=== PATIENT | male | born 1970 | race Caucasian/White ===

== ENCOUNTER 2016-08-07 18:58 | Emergency (ER) | payer OTHER ==
--- NOTE | 2016-08-07 23:05 | DIAGNOSTIC IMAGING REPORT ---
PROCEDURE: XR CHEST 1 VIEW INDICATION: CHEST PAIN TECHNIQUE: Single view chest. 1919 hours COMPARISON: None FINDINGS: Heart size at the upper limits of normal. No central venous congestion. Clear lungs. No effusions or pneumothorax. Intact osseous structures. IMPRESSION: 1. Normal chest.
--- NOTE | 2016-08-07 23:11 | ED CLINICAL REPORT ---
Clinical Report - Physicians/Mid Levels Located Within [facility] [address] [place] [address] 08/07/2016 19:00 Patient: GARY DURAN Time Seen: 19:01. Arrived- By private vehicle. Historian- patient. CPT: ER phys charges level 5 plus (#[id number]). EKG interpretation (#[id number]). HISTORY OF PRESENT ILLNESS Chief Complaint: CHEST PAIN. At its maximum, severity described as mild. When seen in the E.D., severity described as 3 / 10. Modifying factors. Not worsened by anything. This started today at about 4:30 and is still present. It was abrupt in onset. Onset during driving. It is described as pressure and it is described as located in the central chest area. No radiation. No difficulty breathing. Similar symptoms previously: Several times. ( he has had similar episodes several times over the past few weeks). Recent medical care: Not recently seen/assessed. REVIEW OF SYSTEMS No fever, chills, cough, pedal edema or calf pain. No fainting episodes, sore throat, abdominal pain, black stools or difficulty with urination. No skin rash, enlarged lymph nodes, joint pain or bloody stools. All systems otherwise negative, except as recorded above. PAST HISTORY Gout. Nephrolithiasis. Problems: Gout. Nephrolithiasis. Additional Surgeries: no known surgeries. Medications: Aleve Oral (Capsule 220 mg) 1 capsule, 3x a day. Allopurinol Oral (Tablet 300 mg) 1 tablet, daily. Allergies: Keflex. SOCIAL HISTORY Never smoker. No alcohol use or drug use. FAMILY HISTORY Hypertension in first-degree relative (father). many family members have anxiety issues. ADDITIONAL NOTES The nursing notes have been reviewed. PHYSICAL EXAM Vital Signs: 08/07/2016 19:03 BP: 157/98. HR: 66. RR: 18. O2 saturation: 100%. Temp: 97.7 F. Pain level now: 2/10. Have been reviewed. Appearance: Alert. Patient in mild distress. Eyes: Pupils equal, round and reactive to light. ENT: Pharynx normal. Neck: Normal inspection. Neck supple. CVS: Normal heart rate and rhythm. Heart sounds normal. Respiratory: No respiratory distress. Chest pain reproducible with palpation of the costal cartilage and anterior and lateral chest wall, with movement of the trunk and left arm and with deep breathing. Breath sounds normal. Abdomen: Soft and nontender. Bowel sounds normal. No organomegaly. No mass. Back: Normal external inspection. Skin: Skin warm. Normal skin color. No rash. Extremities: Extremities exhibit normal ROM. No calf tenderness. No lower extremity edema. Neuro: Oriented X 3. No motor deficit. No sensory deficit. LABS, X-RAYS, AND EKG EKG: Normal EKG. Rate: 63. Prior EKG unavailable. The study has been independently viewed by me. Chest X-ray: No acute disease. The X-rays were independently viewed by me. Laboratory Tests: CBC w Diff: (FERNIE: 08/07/2016 19:06) ( [facility] [place] 08/07/2016 19:23) Final results Test Result Flag Units (Reference) WHITE BLOOD COUNT 7.7 K/uL (4.5-11.5) RED BLOOD COUNT 4.33 L M/uL (4.50-5.90) HEMOGLOBIN 14.1 gm/dL (13.5-17.5) HEMATOCRIT 41.2 % (41.0-53.0) MEAN CELL VOLUME 95 fL (80-100) MEAN CORPUSCULAR HGB 32 pg (26-34) MEAN CORPUSCULAR HGB CONC 34 g/dL (31-37) RED CELL DISTRIBUTION WIDTH 13.4 % (11.6-14.8) PLATELET COUNT 231 K/uL (150-400) NEUTROPHIL % 61.3 % (50-75) LYMPH % 29.1 % (25-40) MONO % 5.5 % (3-14) EOSINOPHIL % 3.6 % (0-4) BASOPHIL % 0.5 % (0-2) PT with INR: (FERNIE: 08/07/2016 19:06) ( [facility] 08/07/2016 19:30) Final results Test Result Flag Units (Reference) INR 1.0 (0.8-1.2) Low Intensity Therapy: INR 1.5-2.0 PT range 18.5-23.1Mod.Intensity Therapy: INR 2.0-3.0 PT range 23.1-31.5High Intensity Therapy: INR 2.5-3.5 PT range 27.4-35.5High Intensity Therapy 2: INR 3.0-4.0 PT range 31.5-39.3 APTT 34 SECONDS (24-34) D-DIMER QUANTITATIVE < 0.27 L ug/mLFEU (0.27-0.52) The primary value of this quantitative assay relates toits negative predictive value (i.e. exclusion) of pulmonaryembolism/deep vein thrombosis/DIC.Elevated levels of d-dimer may also occur with:, age, cancer, inflammation, liver disease,post-op, infection, hematoma, coronary disease, peripheralarteriopathy, bleeding disorders and thrombolytic treatment.Results should be correlated with other clinical andradiological data.Testing Methodology: Latex Immunoassay BNP: (FERNIE: 08/07/2016 19:06) ( OkgRcvd 08/07/2016 19:44) Final results Test Result Flag Units (Reference) B-TYPE NATRIURETIC PEPTIDE < 5.0 L pg/ml (5-100) CMP: (FERNIE: 08/07/2016 19:06) ( MsgRcvd 08/07/2016 19:43) Final results Test Result Flag Units (Reference) GLUCOSE 93 mg/dL (70-110) BUN 15 mg/dL (7-18) CREATININE 1.1 mg/dL (0.6-1.3) Estimated GFR >60 mL/min Estimated GFR- >60 mL/min Note: Persistent reduction over 3 months in eGFR<60 mL/min/1.73 m2 defines CKD. Patients with eGFR values>=60 mL/min/1.73 m2 may also have CKD if evidence ofpersistent proteinuria. Additional information may be foundat [email or web address].org. SODIUM 140 mmol/L (136-145) POTASSIUM 3.7 mmol/L (3.5-5.1) CHLORIDE 102 mmol/L (98-107) CARBON DIOXIDE 29 mmol/L (21-32) CALCIUM 8.7 mg/dL (8.5-10.1) TOTAL PROTEIN 7.5 g/dL (6.4-8.2) ALBUMIN 4.3 g/dL (3.3-5.0) BILIRUBIN, TOTAL 0.6 mg/dL (0.0-1.0) ALKALINE PHOSPHATASE 106 U/L (46-116) AST (SGOT) 29 U/L (15-37) ALT (SGPT) 46 U/L (12-78) LIPASE 153 U/L (73-393) AMYLASE 46 U/L (25-115) CPK 84 U/L (24-260) TROPONIN I <0.05 ng/mL (0.00-1.5) TROPONIN REFERENCE RANGE:<0.1 NEGATIVE0.1-1.5 INDETERMINANT>1.5 POSITIVE . PROGRESS AND PROCEDURES Course of Care: 21:22 08/07/16. Case was discussed with Dr. Slick tyler. We reviewed the patient's history and examination findings as well as the results of his initial studies. Dr. Kruger will follow up on the results of his second set of cardiac enzymes and will arrange an appropriate disposition for the patient. - MW Pt troponin negative times 2. Has chest wall tenderness that has been on and off for a week. Has had a lot of stressors at work over the past few weeks as well. Patient/family counseled. Disposition: Discharged. Condition: stable. CLINICAL IMPRESSION Chest wall pain .12 lead EKG performed. Multiple stressors. INSTRUCTIONS Apply moist heat for 15-20 minutes two times a day for one weeks until better. Avoid stimulants (such as cigarettes, coffee, cold medicines, sinus medicines, street drugs). Warnings: Further evaluation is necessary. GENERAL WARNINGS: Return or contact your physician immediately if your condition worsens or changes unexpectedly, if not improving as expected, or if other problems arise. Your Current Medications: CONTINUE TAKING THE FOLLOWING MEDICATIONS: Aleve Oral : Capsule 220 mg, 1 capsule 3x a day. Allopurinol Oral : Tablet 300 mg, 1 tablet daily. Prescription Medications: Alprazolam 0.25 mg: take 1-2 orally every 6 hours as needed for anxiety. Dispense fifteen (15). No refill. Follow-up: Return to the emergency department if worse. Follow up with your doctor in one week. Call for an appointment. Understanding of the discharge instructions verbalized by patient and family. Discharge instructions reviewed with and understanding was verbalized by spouse. (Electronically signed by Geoffrey Kruger MD 08/08/2016 15:19)
--- NOTE | 2016-08-07 23:11 | ED NURSING NOTES ---
Clinical Report - Nurses [facility] [address] [place] [address] 08/07/2016 19:00 Patient: GARY DURAN TRIAGE Triage time 19:Aug 07 2016. Acuity: LEVEL 3. Chief Complaint: CHEST DISCOMFORT and (Patient started having chest pressure around 4PM today and has gradually gotten worse as the day has gone on.). 19:08 08/07/16. SEPSIS SCREEN: Sepsis Screen. Negative (no infection suspected/documented). GABRIELLA COMA SCORE: Ronan Coma Scale: 15- eyes open spontaneously (4); best verbal response- oriented x 4 (5); best motor response- obeys commands (6). --19:08 Lisa Sanchez R.N. 19:03 08/07/16. BP: 157/98 (regular adult cuff) taken on the left arm, while sitting. HR: 66. RR: 18. O2 saturation: 100% on room air. Temp: 97.7 F (oral). Pain level now: 05/19. --19:08 Lisa Sanchez R.N. Weight: 113.3 kg stated. Height/Length: 73 inches Per Patient. BMI: 33. --19:05 Lisa Sanchez R.N. Medications Allopurinol Oral (Tablet 300 mg) 1 tablet, daily. --19:05 Lisa Sanchez R.N. Aleve Oral (Capsule 220 mg) 1 capsule, 3x a day. --19:05 Lisa Sanchez R.N. Allergies Keflex. --19:05 Lias Sanchez R.N. History Arrived by private vehicle. Historian: patient. Accompanied by family. Primary physician ([facility]). This started today. ( lightheaded). Treatment PROBATE PARALEGAL: None. SOCIAL HX: Never smoker. No alcohol use or drug use. No infectious disease exposure. ABUSE ASSESSMENT: No report of abuse. --19:08 Lisa Sanchez R.N. PROBLEMS: Gout. Nephrolithiasis. --19:06 Lisa Sanchez R.N. ADDITIONAL SURGERIES: no known surgeries. Interventions ID band on patient. To treatment room. --19:08 Lisa Sanchez R.N. PHYSICAL ASSESSMENT 19:10 08/07/16. Ambulatory to room. Patient gowned. GENERAL / NEURO / PSYCH: Alert. Oriented X 4. Appears anxious. HEENT: Mucous membranes are pink. RESPIRATORY: Respirations not labored. Chest nontender. Breath sounds within normal limits. CVS: Heart sounds within normal limits. Pulses within normal limits. Capillary refill less than 2 seconds. GI / : Abdomen soft and nontender. EXTREMITIES: No lower extremity edema. SKIN: Skin is warm. Normal skin turgor. Skin is non-tender. --19:10 iLsa Sanchez R.N. NURSING PROGRESS NOTES 19:08/07/16. The plan of care for this patient has been created. Monitoring of patient in place. Patient gowned. Head of bed elevated. Reassurance given. Two patient identifiers checked. Call light placed in reach. Side rails up x 1. Bed placed in lowest position. Brakes of bed on. Patient ready for evaluation- chart flagged and ED physician notified. --19:10 Lisa Sanchez R.N. ( Xray in with patient). --19:13 Lisa Sanchez R.N. 19:12 08/07/2016 Site #1 started via IV in the right antecubital space with an 20g angiocath, with aseptic technique and good blood return; one attempt. Blood drawn: rainbow set. Labeled in the presence of the patient and sent to the lab. Saline lock flushed with 10 mL saline. --19:17 Lisa Sanchez R.N. 19:13 08/07/2016 Aspirin PO Tablets 325 mg given. Allergies verified and confirmed 5 rights. --19:18 Lisa Sanchez R.N. 19:17 08/07/16. ( Xray done with patient). --19:17 Lisa Sanchez R.N. 19:42 08/07/16. ( Tightness has subsided some per patient). --19:42 Lisa Sanchez R.N. 19:41 08/07/16. BP: 143/88 (regular adult cuff) taken on the left arm. HR: 55. RR: 18. O2 saturation: 100% on nasal cannula at 2 liters/minute. Pain level now: 05/19. --19:42 Lisa Sanchez R.N. 20:02 08/07/16. --20:02 Lisa Sanchez R.N. 20:08/07/16. BP: 151/91 (regular adult cuff) taken on the left arm. HR: 56. RR: 18. O2 saturation: 100% on nasal cannula at 2 liters/minute. Pain level now: 05/19. --20:02 Lisa Sanchez R.N. EKG time: (19:11). EKG was performed by a tech and shown to the ED physician. --20:16 Juliane Du 20:34 08/07/16. ( Patient offered blanket, he declined). --20:34 Lisa Sanchez R.N. 20:33 08/07/16. BP: 142/91 (regular adult cuff) taken on the left arm. HR: 62. RR: 16. O2 saturation: 99% on nasal cannula at 2 liters/minute. Pain level now: 05/19. --20:34 Lisa Sanchez R.N. 20:34 08/07/16. ( Patient informed more labs at 2200). --20:34 Lisa Sanchez R.N. 21:08/07/16. ( Patients at bedside). --21:10 Lisa Sanchez R.N. 21:08/07/16. BP: 150/81 (regular adult cuff) taken on the left arm. HR: 56. RR: 18. O2 saturation: 95% on nasal cannula at 2 liters/minute. Pain level now: 04/18. --21:10 Lisa Sanchez R.N. 21:37 08/07/16. --21:37 Lisa Sanchez R.NAna Rosa 21:36 08/07/16. BP: 151/93 (regular adult cuff) taken on the left arm. HR: 60. RR: 18. O2 saturation: 98% on nasal cannula at 2 liters/minute. Pain level now: 04/18. --21:37 Lisa Sanchez R.N. ( 8325- nps at bedside for 2nd blood draw.). --22:00 Sury Galicia R.N. 22:03 08/07/16. --22:03 Lisa Sanchez R.N. 22:02 08/07/16. BP: 138/76 (regular adult cuff) taken on the left arm. HR: 63. RR: 18. O2 saturation: 99% on nasal cannula at 2 liters/minute. Pain level now: 04/18. --22:03 Lisa Sanchez R.N. 22:44 08/07/16. BP: 134/87 (regular adult cuff) taken on the left arm. --23:24 Lisa Sanchez R.N. DISPOSITION / DISCHARGE 23:08/07/2016 Site #1 removed upon discharge. Bandaid applied. --23:21 Lisa Sanchez R.N. 23:21 08/07/16. Condition at departure: improved. No learning barriers present. Discharge instructions provided and reviewed with the patient. Reviewed medication(s) side effects, precautions and dosing information. Prescription(s) given to the patient. Patient verbalized understanding. Written instructions provided in Kazakh. The patient was discharged by the physician. He was discharged home and accompanied by spouse. He left the Emergency Department ambulatory and via private vehicle. Patient driving. --23:21 Lisa Sanchez R.N. 23:16 08/07/16. BP: 158/96 (regular adult cuff) taken on the left arm. HR: 57. RR: 18. O2 saturation: 96% on room air. Temp: 98.6 F (oral). Pain level now: 0/10. Additional comments: This is normal for this patient, doctor aware. --23:21 Lisa Sanchez R.N. Departure time: 23:Aug 07 2016. --23:23 Lisa Sanchez R.N. Locked/Released at 08/07/2016 23:26 by Lisa Sanchez R.N.
--- NOTE | 2016-08-07 23:11 | ED ORDER SUMMARY ---
..... Patient: GARY DURAN OrderSheet [facility] VisitID: [id number] [address] [place] [address] 45y, M Registration Date/Time: 08/07/2016 ORDER SHEET Weight: 113.3 kg (stated) Allergies: Keflex GENERAL ORDERS: Chest 1V Urgent (19:08/07/2016 Adalgisa CARBAJAL) (Ack 19:13 KARTIKanders R.N.) (19:17 KARTIKanders R.N.) [employer] Blasting (Continuous) (19:08/07/2016 Adalgisa CARBAJAL) (19:10 Isac R.N.) CBC w Diff Urgent (19:08/07/2016 Adalgisa CARBAJAL) (19:11 Isac R.N.) CMP Urgent (19:08/07/2016 Adalgisa CARBAJAL) (19:11 Isac R.N.) PT with INR Urgent (19:08/07/2016 Adalgisa CARBAJAL) (19:11 Isac R.N.) PTT Urgent (19:08/07/2016 Adalgisa CARBAJAL) (19:11 Isac R.N.) Lipase Urgent (19:08/07/2016 Adalgisa CARBAJAL) (19:11 Isac R.N.) D-Dimer Urgent (19:08/07/2016 Adalgisa CARBAJAL) (19:11 Isac R.N.) Amylase Urgent (19:08/07/2016 Adalgisa CARBAJAL) (19:11 Helens R.N.) CPK Urgent (19:08/07/2016 Adalgisa CARBAJAL) (19:12 Isac R.N.) Troponin-I Urgent (19:08/07/2016 Adalgisa CARBAJAL) (19:12 Isac R.N.) BNP Urgent (19:08/07/2016 Adalgisa CARBAJAL) (19:12 Isac R.N.) Oxygen (2 L/min) (NC) (19:08/07/2016 Adalgisa CARBAJAL) (19:11 Isac R.N.) Pulse oximeter (19:08/07/2016 Adalgisa CARBAJAL) (19:11 Isac R.N.) EKG - ER Stat (19:09 08/07/2016 Adalgisa CARBAJAL) (19:11 Isac R.N.) CPK (second setdraw at 22:06) Urgent (20:22 08/07/2016 Adalgisa CARBAJAL) (Ack 20:33 Kelsyegekimana) (22:11 JSanders R.N.) Troponin-I (second setdraw at 22:06) Urgent (20:23 08/07/2016 Adalgisa CARBAJAL) (Ack 20:33 Taraekimana) (22:11 KARTIKanders R.N.) MEDICATION ORDERS: Aspirin PO 325 mg (NOW) (19:08/07/2016 Adalgisa CARBAJAL) (Ack 19:13 JSanders R.N.) (19:18 JSanders R.N.) IV FLUIDS: IV Saline Lock (19:08/07/2016 Adalgisa CARBAJAL) (Ack 19:13 KARTIKanders R.N.) (19:17 JSanders R.N.) ORDER SHEET NOTES: [Electronically signed by Lisa Sanchez R.N. (23:26 08/07/2016)] [Electronically signed by Geoffrey Kruger MD (15:19 08/08/2016)] [Electronically locked/signed by Lisa Sanchez R.N. (23:26 08/07/2016)]
--- NOTE | 2016-08-07 23:11 | ED NURSING NOTES ---
Clinical Report - Nurses [facility] [address] [place] [address] 08/07/2016 19:00 Patient: GARY DURAN TRIAGE Triage time 19:Aug 07 2016. Acuity: LEVEL 3. Chief Complaint: CHEST DISCOMFORT and (Patient started having chest pressure around 4PM today and has gradually gotten worse as the day has gone on.). 19:08 08/07/16. SEPSIS SCREEN: Sepsis Screen. Negative (no infection suspected/documented). GABRIELLA COMA SCORE: Paden Coma Scale: 15- eyes open spontaneously (4); best verbal response- oriented x 4 (5); best motor response- obeys commands (6). --19:08 Lisa Sanchez R.N. 19:03 08/07/16. BP: 157/98 (regular adult cuff) taken on the left arm, while sitting. HR: 66. RR: 18. O2 saturation: 100% on room air. Temp: 97.7 F (oral). Pain level now: 05/19. --19:08 Lisa Sanchez R.N. Weight: 113.3 kg stated. Height/Length: 73 inches Per Patient. BMI: 33. --19:05 Lisa Sanchez R.N. Medications Allopurinol Oral (Tablet 300 mg) 1 tablet, daily. --19:05 Lisa Sanchez R.N. Aleve Oral (Capsule 220 mg) 1 capsule, 3x a day. --19:05 Lisa Sanchez R.N. Allergies Keflex. --19:05 Lisa Sanchez R.N. History Arrived by private vehicle. Historian: patient. Accompanied by family. Primary physician ([facility]). This started today. ( lightheaded). Treatment ADVANCED DEVELOPER: None. SOCIAL HX: Never smoker. No alcohol use or drug use. No infectious disease exposure. ABUSE ASSESSMENT: No report of abuse. --19:08 Lisa Sanchez R.N. PROBLEMS: Gout. Nephrolithiasis. --19:06 Lisa Sanchez R.N. ADDITIONAL SURGERIES: no known surgeries. Interventions ID band on patient. To treatment room. --19:08 Lisa Sanchez R.N. PHYSICAL ASSESSMENT 19:10 08/07/16. Ambulatory to room. Patient gowned. GENERAL / NEURO / PSYCH: Alert. Oriented X 4. Appears anxious. HEENT: Mucous membranes are pink. RESPIRATORY: Respirations not labored. Chest nontender. Breath sounds within normal limits. CVS: Heart sounds within normal limits. Pulses within normal limits. Capillary refill less than 2 seconds. GI / : Abdomen soft and nontender. EXTREMITIES: No lower extremity edema. SKIN: Skin is warm. Normal skin turgor. Skin is non-tender. --19:10 Lisa Sanchez R.N. NURSING PROGRESS NOTES 19:08/07/16. The plan of care for this patient has been created. Monitoring of patient in place. Patient gowned. Head of bed elevated. Reassurance given. Two patient identifiers checked. Call light placed in reach. Side rails up x 1. Bed placed in lowest position. Brakes of bed on. Patient ready for evaluation- chart flagged and ED physician notified. --19:10 Lisa Sanchez R.N. ( Xray in with patient). --19:13 Lisa Sanchez R.N. 19:12 08/07/2016 Site #1 started via IV in the right antecubital space with an 20g angiocath, with aseptic technique and good blood return; one attempt. Blood drawn: rainbow set. Labeled in the presence of the patient and sent to the lab. Saline lock flushed with 10 mL saline. --19:17 Lisa Sanchez R.N. 19:13 08/07/2016 Aspirin PO Tablets 325 mg given. Allergies verified and confirmed 5 rights. --19:18 Lisa Sanchez R.N. 19:17 08/07/16. ( Xray done with patient). --19:17 Lisa Sanchez R.N. 19:42 08/07/16. ( Tightness has subsided some per patient). --19:42 Lisa Sanchez R.N. 19:41 08/07/16. BP: 143/88 (regular adult cuff) taken on the left arm. HR: 55. RR: 18. O2 saturation: 100% on nasal cannula at 2 liters/minute. Pain level now: 05/19. --19:42 Lisa Sanchez R.N. 20:02 08/07/16. --20:02 Lisa Sanchez R.N. 20:08/07/16. BP: 151/91 (regular adult cuff) taken on the left arm. HR: 56. RR: 18. O2 saturation: 100% on nasal cannula at 2 liters/minute. Pain level now: 05/19. --20:02 Lisa Sanchez R.N. EKG time: (19:11). EKG was performed by a tech and shown to the ED physician. --20:16 Juliane Du 20:34 08/07/16. ( Patient offered blanket, he declined). --20:34 Lisa Sanchez R.N. 20:33 08/07/16. BP: 142/91 (regular adult cuff) taken on the left arm. HR: 62. RR: 16. O2 saturation: 99% on nasal cannula at 2 liters/minute. Pain level now: 05/19. --20:34 Lisa Sanchez R.N. 20:34 08/07/16. ( Patient informed more labs at 2200). --20:34 Lisa Sanchez R.N. 21:08/07/16. ( Patients at bedside). --21:10 Lisa Sanchez R.N. 21:08/07/16. BP: 150/81 (regular adult cuff) taken on the left arm. HR: 56. RR: 18. O2 saturation: 95% on nasal cannula at 2 liters/minute. Pain level now: 04/18. --21:10 Lisa Sanchez R.N. 21:37 08/07/16. --21:37 Lisa Sanchez R.NAna Rosa 21:36 08/07/16. BP: 151/93 (regular adult cuff) taken on the left arm. HR: 60. RR: 18. O2 saturation: 98% on nasal cannula at 2 liters/minute. Pain level now: 04/18. --21:37 Lisa Sanchez R.N. ( 0115- gas generator operator at bedside for 2nd blood draw.). --22:00 Sury Galicia R.N. 22:03 08/07/16. --22:03 Lisa Sanchez R.N. 22:02 08/07/16. BP: 138/76 (regular adult cuff) taken on the left arm. HR: 63. RR: 18. O2 saturation: 99% on nasal cannula at 2 liters/minute. Pain level now: 04/18. --22:03 Lisa Sanchez R.N. 22:44 08/07/16. BP: 134/87 (regular adult cuff) taken on the left arm. --23:24 Lisa Sanchez R.N. DISPOSITION / DISCHARGE 23:08/07/2016 Site #1 removed upon discharge. Bandaid applied. --23:21 Lisa Sanchez R.N. 23:21 08/07/16. Condition at departure: improved. No learning barriers present. Discharge instructions provided and reviewed with the patient. Reviewed medication(s) side effects, precautions and dosing information. Prescription(s) given to the patient. Patient verbalized understanding. Written instructions provided in Chinese. The patient was discharged by the physician. He was discharged home and accompanied by spouse. He left the Emergency Department ambulatory and via private vehicle. Patient driving. --23:21 Lisa Sanchez R.N. 23:16 08/07/16. BP: 158/96 (regular adult cuff) taken on the left arm. HR: 57. RR: 18. O2 saturation: 96% on room air. Temp: 98.6 F (oral). Pain level now: 0/10. Additional comments: This is normal for this patient, doctor aware. --23:21 Lisa Sanchez R.N. Departure time: 23:Aug 07 2016. --23:23 Lisa Sanchez R.N. Locked/Released at 08/07/2016 23:26 by Lisa Sanchez R.N.
--- NOTE | 2016-08-07 23:11 | ED ORDER SUMMARY ---
..... Patient: GARY DURAN OrderSheet [facility] VisitID: [id number] [address] [place] [address] 45y, M Registration Date/Time: 08/07/2016 ORDER SHEET Weight: 113.3 kg (stated) Allergies: Keflex GENERAL ORDERS: Chest 1V Urgent (19:08/07/2016 Adalgisa CARBAJAL) (Ack 19:13 KARTIKanders R.N.) (19:17 KARTIKanders R.N.) Conditioning Machine Operator (Continuous) (19:08/07/2016 Adalgisa CARBAJAL) (19:10 Isac R.N.) CBC w Diff Urgent (19:08/07/2016 Adalgisa CARBAJAL) (19:11 Isac R.N.) CMP Urgent (19:08/07/2016 Adalgisa CARBAJAL) (19:11 Isac R.N.) PT with INR Urgent (19:08/07/2016 Adalgisa CARBAJAL) (19:11 Isac R.N.) PTT Urgent (19:08/07/2016 Adalgisa CARBAJAL) (19:11 Isac R.N.) Lipase Urgent (19:08/07/2016 Adalgisa CARBAJAL) (19:11 Isac R.N.) D-Dimer Urgent (19:08/07/2016 Adalgisa CARBAJAL) (19:11 Isac R.N.) Amylase Urgent (19:08/07/2016 Adalgisa CARBAJAL) (19:11 Helens R.N.) CPK Urgent (19:08/07/2016 Adalgisa CARBAJAL) (19:12 Isac R.N.) Troponin-I Urgent (19:08/07/2016 Adalgisa CARBJAAL) (19:12 Isac R.N.) BNP Urgent (19:08/07/2016 Adalgisa CARBAJAL) (19:12 Isac R.N.) Oxygen (2 L/min) (NC) (19:08/07/2016 Adalgisa CARBAJAL) (19:11 Isac R.N.) Pulse oximeter (19:08/07/2016 Adalgisa CARBAJAL) (19:11 Isac R.N.) EKG - ER Stat (19:09 08/07/2016 Adalgisa CARBAJAL) (19:11 Isac R.N.) CPK (second setdraw at 22:06) Urgent (20:22 08/07/2016 Adalgisa CARBAJAL) (Ack 20:33 Kelsyegekimana) (22:11 JSanders R.N.) Troponin-I (second setdraw at 22:06) Urgent (20:23 08/07/2016 Adalgisa CARBAJAL) (Ack 20:33 Taraekimana) (22:11 KARTIKanders R.N.) MEDICATION ORDERS: Aspirin PO 325 mg (NOW) (19:08/07/2016 Adalgisa CARBAJAL) (Ack 19:13 JSanders R.N.) (19:18 JSanders R.N.) IV FLUIDS: IV Saline Lock (19:08/07/2016 Adalgisa CARBAJAL) (Ack 19:13 KARTIKanders R.N.) (19:17 JSanders R.N.) ORDER SHEET NOTES: [Electronically signed by Lisa Sanchez R.N. (23:26 08/07/2016)] [Electronically signed by Geoffrey Kruger MD (15:19 08/08/2016)] [Electronically locked/signed by Lisa Sanchez R.N. (23:26 08/07/2016)]
--- NOTE | 2016-08-08 15:20 | ED MAR SUMMARY ---
..... Medication Administration Record [facility] [address] [place] [address] Patient: GARY DURAN Visit ID: [id number] 45y, M Weight: 113.3 kg Height/Length: 73 in BMI: 33 ALLERGIES: Keflex Given 19:13 08/07/2016 Lisa Sanchez R.N. Medication Administered: ASPIRIN [PO], Dose: 325 mg Tablets PO. Medication Ordered: Aspirin PO 325 mg (NOW).
--- NOTE | 2016-08-08 15:20 | ED DISCHARGE INSTRUCTIONS ---
Patient: GARY DURAN General Instructions [facility] VisitID: [id number] [place] [address] 45y, M Registration Date/Time: 08/07/2016 Chest wall pain .12 lead EKG performed. Multiple stressors. INSTRUCTIONS Apply moist heat for 15-20 minutes two times a day for one weeks until better. Avoid stimulants (such as cigarettes, coffee, cold medicines, sinus medicines, street drugs). Warnings: Further evaluation is necessary. GENERAL WARNINGS: Return or contact your physician immediately if your condition worsens or changes unexpectedly, if not improving as expected, or if other problems arise. Your Current Medications: CONTINUE TAKING THE FOLLOWING MEDICATIONS: Aleve Oral : Capsule 220 mg, 1 capsule 3x a day. Allopurinol Oral : Tablet 300 mg, 1 tablet daily. Prescription Medications: Alprazolam 0.25 mg: take 1-2 orally every 6 hours as needed for anxiety. Dispense fifteen (15). No refill. Follow-up: Return to the emergency department if worse. Follow up with your doctor in one week. Call for an appointment. Understanding of the discharge instructions verbalized by patient and family. Discharge instructions reviewed with and understanding was verbalized by spouse. ADDITIONAL INFORMATION Chest Wall Pain: Costochondritis The chest pain that you have had today is caused by Costochondritis. This condition is due to an inflammation of the cartilage joining the ribs to the breastbone. It is not caused by heart or lung problems. Although the exact cause for costochondritis is not known, it often occurs during times of emotional stress. It can be painful, but it is not dangerous. It usually disappears within one to two weeks, but may recur. Rarely, a more serious condition may cause symptoms similar to costochondritis; therefore, watch for the warning signs listed below. Home Care: If you feel that emotional stress is a cause of your condition, try to identify sources of that stress. It may not be obvious! Learn ways to deal with the stress in your life such as regular exercise, muscle relaxation, meditation, or simply taking time out for yourself. For more information about this, consult your doctor or go to a local bookstore and review books and tapes available on the subject of stress reduction. You may use acetaminophen (Tylenol) or ibuprofen (Motrin, Advil) to control pain, unless another pain medicine was prescribed. [ NOTE: If you have liver disease or ever had a stomach ulcer, talk with your doctor before using these medicines.] The use of heat (hot wet compress or heating pad) with or without local analgesic creams (Deep Heat Rub, Mohinder Higginbotham) will be helpful to reduce pain. Follow Up with your doctor as directed or sooner if you do not start to improve within the next two days. Get Prompt Medical Attention if any of the following occur: A change in the type of pain: if it feels different, becomes more severe, lasts longer, or spreads into your shoulder, arm, neck, jaw or back Shortness of breath or increased pain with breathing Weakness, dizziness, or fainting Cough with dark colored sputum (phlegm) or blood Abdominal pain Dark red or black stools Fever of 100.4F (38C) or higher, or as directed by your healthcare provider Alprazolam Oral tablet What is this medicine? ALPRAZOLAM (al PRAY juan reno) is a benzodiazepine. It is used to treat anxiety and panic attacks. How should I use this medicine? Take this medicine by mouth with a glass of water. Follow the directions on the prescription label. Take your medicine at regular intervals. Do not take it more often than directed. If you have been taking this medicine regularly for some time, do not suddenly stop taking it. You must gradually reduce the dose or you may get severe side effects. Ask your doctor or health prompt care rn for advice. Even after you stop taking this medicine it can still affect your body for several days. Talk to your dump grader regarding the use of this medicine in children. Special care may be needed. What side effects may I notice from receiving this medicine? Side effects that you should report to your doctor or health prompt care rn as soon as possible: allergic reactions like skin rash, itching or hives, swelling of the face, lips, or tongue confusion, forgetfulness depression difficulty sleeping difficulty speaking feeling faint or lightheaded, falls mood changes, excitability or aggressive behavior muscle cramps trouble passing urine or change in the amount of urine unusually weak or tired Side effects that usually do not require medical attention (report to your doctor or health prompt care rn if they continue or are bothersome): change in sex drive or performance changes in appetite What may interact with this medicine? Do not take this medicine with any of the following medications: certain medicines for HIV infection or AIDS ketoconazole itraconazole This medicine may also interact with the following medications: control pills certain macrolide antibiotics like clarithromycin, erythromycin, troleandomycin cimetidine cyclosporine ergotamine grapefruit juice herbal or dietary supplements like kava kava, melatonin, dehydroepiandrosterone, DHEA, Traci's Wort or valerian imatinib, STI-571 isoniazid levodopa medicines for depression, anxiety, or psychotic disturbances prescription pain medicines rifampin, rifapentine, or rifabutin some medicines for blood pressure or heart problems some medicines for seizures like carbamazepine, oxcarbazepine, phenobarbital, phenytoin, primidone What if I miss a dose? If you miss a dose, take it as soon as you can. If it is almost time for your next dose, take only that dose. Do not take double or extra doses. Where should I keep my medicine? Keep out of the reach of children. This medicine can be abused. Keep your medicine in a safe place to protect it from theft. Do not share this medicine with anyone. Selling or giving away this medicine is dangerous and against the law. Store at room temperature between 20 and 25 degrees C (68 and 77 degrees F). Throw away any unused medicine after the expiration date. What should I tell my health care provider before I take this medicine? They need to know if you have any of these conditions: an alcohol or drug abuse problem bipolar disorder, depression, psychosis or other mental health conditions glaucoma kidney or liver disease lung or breathing disease myasthenia gravis Parkinson's disease porphyria seizures or a history of seizures suicidal thoughts an unusual or allergic reaction to alprazolam, other benzodiazepines, foods, dyes, or preservatives or trying to get breast-feeding What should I watch for while using this medicine? Visit your doctor or health prompt care rn for regular checks on your progress. Your body can become dependent on this medicine. Ask your doctor or health prompt care rn if you still need to take it. You may get drowsy or dizzy. Do not drive, use machinery, or do anything that needs mental alertness until you know how this medicine affects you. To reduce the risk of dizzy and fainting spells, do not stand or sit up quickly, especially if you are an older patient. Alcohol may increase dizziness and drowsiness. Avoid alcoholic drinks. Do not treat yourself for coughs, colds or allergies without asking your doctor or health prompt care rn for advice. Some ingredients can increase possible side effects. You have been given the following additional information: Chest Wall Pain, Costochondritis Alprazolam Oral tablet (Electronically signed by Geoffrey Kruger MD 08/08/2016 15:19)
--- NOTE | 2016-08-08 15:20 | ED DISCHARGE INSTRUCTIONS ---
Patient: GARY DURAN General Instructions [facility] VisitID: [id number] [place] [address] 45y, M Registration Date/Time: 08/07/2016 Chest wall pain .12 lead EKG performed. Multiple stressors. INSTRUCTIONS Apply moist heat for 15-20 minutes two times a day for one weeks until better. Avoid stimulants (such as cigarettes, coffee, cold medicines, sinus medicines, street drugs). Warnings: Further evaluation is necessary. GENERAL WARNINGS: Return or contact your physician immediately if your condition worsens or changes unexpectedly, if not improving as expected, or if other problems arise. Your Current Medications: CONTINUE TAKING THE FOLLOWING MEDICATIONS: Aleve Oral : Capsule 220 mg, 1 capsule 3x a day. Allopurinol Oral : Tablet 300 mg, 1 tablet daily. Prescription Medications: Alprazolam 0.25 mg: take 1-2 orally every 6 hours as needed for anxiety. Dispense fifteen (15). No refill. Follow-up: Return to the emergency department if worse. Follow up with your doctor in one week. Call for an appointment. Understanding of the discharge instructions verbalized by patient and family. Discharge instructions reviewed with and understanding was verbalized by spouse. ADDITIONAL INFORMATION Chest Wall Pain: Costochondritis The chest pain that you have had today is caused by Costochondritis. This condition is due to an inflammation of the cartilage joining the ribs to the breastbone. It is not caused by heart or lung problems. Although the exact cause for costochondritis is not known, it often occurs during times of emotional stress. It can be painful, but it is not dangerous. It usually disappears within one to two weeks, but may recur. Rarely, a more serious condition may cause symptoms similar to costochondritis; therefore, watch for the warning signs listed below. Home Care: If you feel that emotional stress is a cause of your condition, try to identify sources of that stress. It may not be obvious! Learn ways to deal with the stress in your life such as regular exercise, muscle relaxation, meditation, or simply taking time out for yourself. For more information about this, consult your doctor or go to a local bookstore and review books and tapes available on the subject of stress reduction. You may use acetaminophen (Tylenol) or ibuprofen (Motrin, Advil) to control pain, unless another pain medicine was prescribed. [ NOTE: If you have liver disease or ever had a stomach ulcer, talk with your doctor before using these medicines.] The use of heat (hot wet compress or heating pad) with or without local analgesic creams (Deep Heat Rub, Mohinder Higginbotham) will be helpful to reduce pain. Follow Up with your doctor as directed or sooner if you do not start to improve within the next two days. Get Prompt Medical Attention if any of the following occur: A change in the type of pain: if it feels different, becomes more severe, lasts longer, or spreads into your shoulder, arm, neck, jaw or back Shortness of breath or increased pain with breathing Weakness, dizziness, or fainting Cough with dark colored sputum (phlegm) or blood Abdominal pain Dark red or black stools Fever of 100.4F (38C) or higher, or as directed by your healthcare provider Alprazolam Oral tablet What is this medicine? ALPRAZOLAM (al PRAY juan reno) is a benzodiazepine. It is used to treat anxiety and panic attacks. How should I use this medicine? Take this medicine by mouth with a glass of water. Follow the directions on the prescription label. Take your medicine at regular intervals. Do not take it more often than directed. If you have been taking this medicine regularly for some time, do not suddenly stop taking it. You must gradually reduce the dose or you may get severe side effects. Ask your doctor or health child care provider for advice. Even after you stop taking this medicine it can still affect your body for several days. Talk to your batch analyst regarding the use of this medicine in children. Special care may be needed. What side effects may I notice from receiving this medicine? Side effects that you should report to your doctor or health child care provider as soon as possible: allergic reactions like skin rash, itching or hives, swelling of the face, lips, or tongue confusion, forgetfulness depression difficulty sleeping difficulty speaking feeling faint or lightheaded, falls mood changes, excitability or aggressive behavior muscle cramps trouble passing urine or change in the amount of urine unusually weak or tired Side effects that usually do not require medical attention (report to your doctor or health child care provider if they continue or are bothersome): change in sex drive or performance changes in appetite What may interact with this medicine? Do not take this medicine with any of the following medications: certain medicines for HIV infection or AIDS ketoconazole itraconazole This medicine may also interact with the following medications: control pills certain macrolide antibiotics like clarithromycin, erythromycin, troleandomycin cimetidine cyclosporine ergotamine grapefruit juice herbal or dietary supplements like kava kava, melatonin, dehydroepiandrosterone, DHEA, Traci's Wort or valerian imatinib, STI-571 isoniazid levodopa medicines for depression, anxiety, or psychotic disturbances prescription pain medicines rifampin, rifapentine, or rifabutin some medicines for blood pressure or heart problems some medicines for seizures like carbamazepine, oxcarbazepine, phenobarbital, phenytoin, primidone What if I miss a dose? If you miss a dose, take it as soon as you can. If it is almost time for your next dose, take only that dose. Do not take double or extra doses. Where should I keep my medicine? Keep out of the reach of children. This medicine can be abused. Keep your medicine in a safe place to protect it from theft. Do not share this medicine with anyone. Selling or giving away this medicine is dangerous and against the law. Store at room temperature between 20 and 25 degrees C (68 and 77 degrees F). Throw away any unused medicine after the expiration date. What should I tell my health care provider before I take this medicine? They need to know if you have any of these conditions: an alcohol or drug abuse problem bipolar disorder, depression, psychosis or other mental health conditions glaucoma kidney or liver disease lung or breathing disease myasthenia gravis Parkinson's disease porphyria seizures or a history of seizures suicidal thoughts an unusual or allergic reaction to alprazolam, other benzodiazepines, foods, dyes, or preservatives or trying to get breast-feeding What should I watch for while using this medicine? Visit your doctor or health child care provider for regular checks on your progress. Your body can become dependent on this medicine. Ask your doctor or health child care provider if you still need to take it. You may get drowsy or dizzy. Do not drive, use machinery, or do anything that needs mental alertness until you know how this medicine affects you. To reduce the risk of dizzy and fainting spells, do not stand or sit up quickly, especially if you are an older patient. Alcohol may increase dizziness and drowsiness. Avoid alcoholic drinks. Do not treat yourself for coughs, colds or allergies without asking your doctor or health child care provider for advice. Some ingredients can increase possible side effects. You have been given the following additional information: Chest Wall Pain, Costochondritis Alprazolam Oral tablet (Electronically signed by Geoffrey Kruger MD 08/08/2016 15:19)
--- NOTE | 2016-08-08 15:20 | ED MAR SUMMARY ---
..... Medication Administration Record [facility] [address] [place] [address] Patient: GARY DURAN Visit ID: [id number] 45y, M Weight: 113.3 kg Height/Length: 73 in BMI: 33 ALLERGIES: Keflex Given 19:13 08/07/2016 Lisa Sanchez R.N. Medication Administered: ASPIRIN [PO], Dose: 325 mg Tablets PO. Medication Ordered: Aspirin PO 325 mg (NOW).
--- NOTE | 2016-08-08 15:20 | ED MED RECONCILIATION SUMMARY ---
Patient: GARY DURAN Medication Reconciliation Report [facility] VisitID: [id number] [address] [place] [address] 45y, M Registration Date/Time: 08/07/2016 Weight: 113.3 kg Height/Length: 73 in. BMI: 33.0 ALLERGIES: Keflex The patient's Home Medications are listed below: CONTINUE TAKING THE FOLLOWING MEDICATIONS: Aleve Oral (220 mg) 1 capsule, 3x a day Allopurinol Oral (300 mg) 1 tablet, daily The source(s) of the original Home Medication information: Not obtained. The following Medications were given to the patient in the Emergency Department: Aspirin [PO] PO 325 mg, administered: 08/07/2016 7:13:00 PM The following Medications were prescribed to the patient: Alprazolam 0.25 mg: take 1-2 orally every 6 hours as needed for anxiety. Dispense fifteen (15). No refill. -- Geoffrey Kruger MD
--- NOTE | 2016-08-08 15:20 | ED MED RECONCILIATION SUMMARY ---
Patient: GARY DURAN Medication Reconciliation Report [facility] VisitID: [id number] [address] [place] [address] 45y, M Registration Date/Time: 08/07/2016 Weight: 113.3 kg Height/Length: 73 in. BMI: 33.0 ALLERGIES: Keflex The patient's Home Medications are listed below: CONTINUE TAKING THE FOLLOWING MEDICATIONS: Aleve Oral (220 mg) 1 capsule, 3x a day Allopurinol Oral (300 mg) 1 tablet, daily The source(s) of the original Home Medication information: Not obtained. The following Medications were given to the patient in the Emergency Department: Aspirin [PO] PO 325 mg, administered: 08/07/2016 7:13:00 PM The following Medications were prescribed to the patient: Alprazolam 0.25 mg: take 1-2 orally every 6 hours as needed for anxiety. Dispense fifteen (15). No refill. -- Geoffrey Kruger MD
== END 2016-08-07 23:23 | disposition home or self-care (01) ==
LOC: ED SRH 18:58
DX: R07.89 Other chest pain (principal); F43.0 Acute stress reaction; Z88.8 Allergy status to other drugs, medicaments and biological substances
CPT/HCPCS: 90074; 90100; 90616; 91320; 91556; 92235; 92530; 92610; 94001; 94060; 95059